=== PATIENT | male | born 1980 | race Hispanic/Latino ===

== ENCOUNTER 2016-06-11 15:05 | Day surgery (SDC) | payer SELFPAY ==
[~2016-06-11] VITALS: Ht 167.6 cm; Wt 94.4 kg
[2016-06-11] VITALS (7 sets, daily range): BP systolic 110–133; BP diastolic 60–88; PULSE 59–70; RESP 12–18; O2SAT 94–98
[2016-06-11] MEDS ORDERED: Dexamethasone 4 mg/mL Inj ONE (15:06)
[2016-06-11] MEDS ORDERED: fentaNYL-PF 50 mCg/mL 2 mL Inj ONE (15:06)
[2016-06-11] MEDS ORDERED: Propofol 10,000 mCg/mL 20 mL Inj ONE (15:06)
[2016-06-11] MEDS ORDERED: Ondansetron 2 mg/mL 2 mL Inj ONE (15:06)
[2016-06-11] MEDS ORDERED: CeFAZolin Inj 2 gm / 50mL D5W IV ONE (16:00)
[2016-06-11] MEDS ORDERED: Lactated Ringer's 1,000 ML IV ONE (16:00)
[2016-06-11] MEDS ORDERED: HYDR-4003 PO (16:40)
[2016-06-11] MEDS ORDERED: CEPH500C PO (16:40)
[2016-06-11] MEDS ORDERED: Mineral Oil-Light (Sterile) 25 mL TOPICAL ONE ×2 (17:06→18:11)
[2016-06-11] MEDS ORDERED: Lactated Ringer's 1,000 ML IV SCH (17:19)
[2016-06-11] MEDS ORDERED: Lactated Ringer's 500 ML IV PRN (17:19)
--- NOTE | 2016-06-11 17:19 | PCM.HPANE ---
Patient Data Date of Service: Jun 11, 2016 Surgeon Admitting Provider: Attending Provider:Markus Kamara DO Primary Care Physician:Sarah Other Provider:Devora Null Anesthesia Reason for Visit Ind Left Arm Ht/WT & BMI Height (Feet): 5 Height (Inches): 6 Weight (Kilograms): 94.4 Body Mass Index 33.00, 33.00 Allergies Coded Allergies: No Known Drug Allergies (Verified Allergy, Mild, 06/11/16) Past Anesthesia History Anesthesia History: Denies:: Abnormal Airway, Anesthesia Reactions, Difficult Intubation, Fam Anesthesia Reaction, Fam Malignant Hypertherm, Malignant Hyperthermia Diabetes History Hx Diabetes?: No MRSA MRSA: No Medications Hypertension Medication: No Home Meds Incl Beta Sumi: No Reported Medications Hydrocodone-Acetaminophen 5-325 mg 1 Each Tablet1 Tablet PO Q6HR PRN For Pain Ref 0 06/11/16 Cephalexin 500 Mg [id number] Mg PO QID #40 CAPSULE Ref 0 06/11/16 History History of ENT Problems?: No HEENT History: Denies:: Abnormal Airway Cataracts Difficult Intubation Dysphagia Glaucoma Hearing Problem Sinus Problem TMJ Denture Type: None Teeth Condition: Within Normal Limits Hx of Heart Problems?: No Cardiovascular History: Denies:: AICD Abdominal Aortic Aneurism Atrial Fibrillation Cardiac Surgery Chest Pain Congestive Heart Failure Coronary Artery Disease Edema Heart Murmur Hypertension Irregular Heartbeat Pacemaker Peripheral Vascular Rheumatic Fever Thrombophlebitis Valvular Heart Disease Hx of Respiratory Problem?: No Respiratory History: Denies:: Asthma COPD Chest Surgery Cough Dyspnea Emphysema Hemoptysis Oxygen Administration Pneumonia Pulmonary Embolism Tuberculosis Use of C-PAP Machine Use of Inhalers / NEBS Hx Neurologic Problems?: No Neurological History: Denies:: Alzheimer's Disease CVA Dementia Dizziness Headaches Multiple Sclerosis Parkinson's Disease Seizures TIA Hx of GI Problems?: No Hx of Problems?: No Genitourinary History: Denies:: HX of Hemodialysis Kidney Stones Urinary Tract Infection HX of Peritoneal Dialysis: No Male Hx: Denies:: Prostate Problems Scrotal Mass Testicular Surgery Hx Musculoskeletal Problems?: No Musculoskeletal History: Denies:: Back Injury Degenerative Joint Fibromyalgia Joint Replacement Musculoskeletal Trauma Myasthenia Gravis Osteoarthritis Rheumatoid Arthritis Systemic Lupus Hx of Psycho/Social Problems?: No Psycho Social History: Denies:: Bipolar Disorder Hx Depression Suicide Attempt Hx Surgeries?: No Hx Any Other Health Problems?: No Other History: Denies:: Cancer Endocrine Disease Hospitalization Thyroid Disease History Blood Transfusions: Denies:: Accept Blood Products? Blood Transfuse Reaction Blood Transfusions Hx Diabetes: No Hx Alcohol Use: Yes (SOCIALLY)Hx Substance Use: NoHave You Smoked inLast 12 mo : No Stop/Bang Treated for Sleep Apnea?: No Do You Have a CPAP Machine?: No S-Snoring: Do You Snore Loudly: No T-Tired: feel tired, fatigued: No O-Obsered: Observed not breath: No P-Blood Pressure: treated: No B- Body Mass Index > 35 kg/m2: No A- Age over 50: No N- Neck Large Circumference: No G- Gender Male: No UZAIR Total Score: 0 UZAIR Risk Assessment: Low Risk, <3 Yes Risk Assessment Category Category 1A: Patient has history of documented sleep apnea, and HAS NOT received any narcotic, sedative or anesthesia administration during this stay. Category 1B: Patient has history of documented sleep apnea, and HAS received any narcotic , sedative or anesthesia administration during this stay Category 2: Patient has SUSPECTED Obstructive Sleep Apnea, and HAS received any narcotic , sedative or anesthesia administration during this stay. Category 3: Patient has SUSPECTED Obstructive Sleep Apnea and HAS NOT received narcotic, sedative or anesthesia administration during this stay. Category 4: Outpatient in Procedural Areas with known sleep apnea or who screen positive for High Risk via the STOP/BANG questionnaire. Exam Exam Vital Signs Vital Signs Date Time Temp Pulse Resp B/P Pulse Ox O2 Delivery O2 Flow Rate FiO2 06/11/16 16:00 36.1 63 16 114/63 98 Room Air General Appearance: Alert, Oriented X3, Cooperative, No Acute Distress HEENT/AIRWAY: MP 2 Lungs: Clear to Auscultation Heart: Exam Unremarkable, Regular Rate/Rhythm, Normal S1, Normal S2, No Murmurs /Rubs/Gallops Meds/Labs/Diagnostics Admission Meds Current Medications Lactated Ringer's (Lr) 1,000 ml @ ud STK-MED ONCE IV Last administered on 06/11t 16:00; Start 06/11/16 at 16:00; Stop 06/11/16 at 16:20; Status DC Plan Impression Patient chart reviewed, patient interviewed and anesthestic plan with risks, benefits, and alternatives discussed, and informed consent obtained. ASA Physical Status: ASA1 Normal Healthy Anesthetic Plan: GA Bene/Risks/Altern/Consents: Yes HP Complete Prior to Induction: Yes Jose Santoyo MD Jun 11, 2016 17:19
[2016-06-11] MEDS ORDERED: Phenylephrine 10,000 mCg/mL Inj IVPUSH PRN (17:20)
[2016-06-11] MEDS ORDERED: Ondansetron 2 mg/mL 2 mL Inj IVPUSH PRN ×2 (17:20→17:45)
[2016-06-11] MEDS ORDERED: EPHEDrine Sulfate 50 mg/mL Inj IVPUSH PRN (17:20)
[2016-06-11] MEDS ORDERED: fentaNYL-PF 50 mCg/mL 2 mL Inj IVPUSH PRN (17:20)
[2016-06-11] MEDS ORDERED: Labetalol 5 mg/mL 4 mL Inj IV PRN (17:20)
[2016-06-11] MEDS ORDERED: Polyethylene Glycol (PEG) 17 Gm Powder PO PRN (17:45)
[2016-06-11] MEDS ORDERED: diphenhydrAMINE 25 mg Capsule PO PRN (17:45)
[2016-06-11] MEDS ORDERED: HYDROcodone-APAP 5-325 mg Tablet PO PRN (17:45)
[2016-06-11] MEDS ORDERED: Sodium Biphos-Phos 133 mL Enema RECTAL PRN (17:45)
[2016-06-11] MEDS ORDERED: Magnesium Hydroxide 10 mL Oral Concentration PO PRN (17:45)
--- NOTE | 2016-06-11 19:04 | PCM.ANEP1 ---
Post Anesthesia Phase 1 PACU Phase 1 Assessment Date of Service: Jun 11, 2016 Vital Signs Vital Signs Date Time Temp Pulse Resp B/P Pulse Ox O2 Delivery O2 Flow Rate FiO2 06/11/16 18:59 39.3 70 15 118/77 94 Room Air 06/11/16 16:00 36.1 63 16 114/63 98 Room Air Anesthetic Administered: GA Level of Alertness: Sleepy, easy to arouse ALCOCER's with Equal Strength: Yes Pain: No Nausea or Vomiting: No Cardiovascular Function and Hy: Yes Oxygen Delivery: Room Air Lungs: Clear to Auscultation Dermatome Level: Full Sensation Complications: No Follow up Care: No Jose Santoyo MD Jun 11, 2016 19:04
[2016-06-11] MEDS: Senna-Docusate 8.6-50 mg Tablet PO SCH (22:53)
[2016-06-12 00:31] VITALS: BP 117/75; PULSE 61; RESP 18; O2SAT 97
[2016-06-12] MEDS: Sodium Chloride LOK Flush 10 mL Syringe IV SCH ×2 (01:13→12:01)
[2016-06-12] MEDS ORDERED: 0.9% Sodium Chloride 250 ML ONE (02:33)
[2016-06-12] MEDS: CeFAZolin Inj 2 GM in IV Premix 1 EACH IV SCH ×2 (02:39→12:01)
--- NOTE | 2016-06-12 03:21 | NUR ---
Arrival to Unit Patient arrived to the floor at 1940 from PACU. Immediately after arrival, patient ambulated to bathroom SBA to void. Denies any lightheadedness or dizziness. Complained of 7/10 left thumb pain, but asked if he could eat before he received any pain medication. Has only required 1 tab percocet around 2250 for pain. Upon reassessment patient has been sleeping and appears comfortable. IV is running NS @ TKO with Int abx. Will continue to monitor, and continue Q1 hour checks.
[2016-06-12 05:22] VITALS: BP 118/70; PULSE 54; RESP 16; O2SAT 95
--- NOTE | 2016-06-12 08:43 | OP ---
[address] [address] OPERATIVE REPORT PATIENT: TWIN GUERRERO : 1980 MR#: [id number] ADMIT: 06/11/2016 JOB ID: [id number] DATE OF SURGERY: 06/11/2016 PREOPERATIVE DIAGNOSIS(ES): Left thumb high-pressure paint injection injury. POSTOPERATIVE DIAGNOSIS(ES): Left thumb high-pressure paint injection injury. PROCEDURE: Incision and drainage of complex left thumb paint injection injury. SURGEON: Markus Kamara D.O. ANESTHESIA: General. HISTORY: The patient is a pleasant 36-year-old male who was cleaning out his paint gun when he accidentally discharged it into his left thumb pulp. He presented the following day to an outlying facility and was diagnosed with high-pressure paint injection injury. He states that at the ED they squeezed out as much paint as possible and sutured the wound closed. He was thus referred to me the following day. Upon presentation, there was a mild amount of swelling and pain. Radiographs did demonstrate residual paint to the volar ulnar pulp. I discussed with the patient and his girlfriend the risks, benefits, alternatives and indications to proceed with incision and drainage of the left thumb. Explained to him the importance of having this done as soon as possible due to the paint causing further damage to the subcutaneous tissues. He understood the risks include, but not limited to, neurovascular injury, tendon injury, infection, skin necrosis, amputation, stiffness, all of which may require further intervention. The patient had all questions answered. Consent was signed and placed in the chart. PROCEDURE IN DETAIL: The patient was brought to the operative suite and placed supine on the operating room table. Surgical time-out was performed. Everyone in the room was in agreement. After appropriate anesthesia was obtained, a tourniquet was applied to the left upper extremity and the left upper extremity prepped and draped in a sterile fashion. The patient's previous puncture wound was opened up by removing the suture and extended in a Fide fashion both distally and proximally to the thumb. Dissection was carried down to the pulp demonstrating a significant amount of paint residue. The area was curetted. The neurovascular bundles were identified. There was some paint near and surrounding the ulnar neurovascular bundle. This was dissected free from the bundle. The underlying flexor tendon sheath was evaluated and did not demonstrate any evidence of a foreign body including any paint. Next, mineral oil was used to immerse the operative site and to help remove some of the paint particles. This was followed by washing with normal saline. This was repeated several times followed by application of chlorhexidine and scrubbing the operative site. This was again repeated with a wash of normal saline and several repeats of the chlorhexidine scrub. This was followed by a fine dissection through the dermis and the subcutaneous tissues to remove any remaining pain particles. This was performed utilizing a combination of curettes, rongeurs and sharp dissection with curved scissors. Final radiographic projections on fluoroscopy were utilized to verify removal of the paint from the soft tissues. Final irrigation was performed and final examination performed. The patient's skin was then closed with 5-0 nylon in a simple interrupted fashion after placing one single Iodoform gauze as a wick within the wound for later removal on postoperative day #1. Bulky dressing was then applied. ESTIMATED BLOOD LOSS: Less than 1 cc. COMPLICATIONS: None. DISPOSITION: The patient tolerated the procedure well. Anesthesia was reversed. The patient was transferred back to recovery. POSTOPERATIVE PLAN: The patient will be admitted overnight and his thumb will be re-evaluated tomorrow. He will likely be able to be discharged home once the drain is pulled and have him start working on range of motion to the left thumb. I did discuss the possibility of requiring a second washout if his symptoms were not improving within his hospitalization. He will then followup in a week once discharged for a wound recheck and at two weeks for suture removal. JAYNA
[2016-06-12] MEDS: Senna-Docusate 8.6-50 mg Tablet PO SCH (09:30)
[2016-06-12 09:39] VITALS: BP 122/77; PULSE 66; RESP 18; O2SAT 97
--- NOTE | 2016-06-12 09:50 | NUR ---
Pt. not available at first visit (RN evaluating). I will try again when schedule allows which won't be until at least early afternoon. I did overhear RN discussing edema control and encouraging ROM so pt. has been educated properly. Channing Daniels, OTR/L
--- NOTE | 2016-06-12 13:00 | PCM.PNORTH ---
Subjective Date of Service: Jun 12, 2016 Visit Information: Reason for Visit Ind Left Arm Surgery/Surgery Date Post-Op Day # Date of Admission: Hospital Day # Subjective POD #1 s/p I/D L thumb secondary to a high pressure paint injection injury Pt doing well. Mild pain. Taking mainly ibuprofen. Tolerating PO Objective Exam Objective Gen - alert, NAD Ext - dressing C/D/I Drain pulled Thumb well perfused with complete intact sensation Vital Signs and I/O Vital Sign - Last Date Time Temp Pulse Resp B/P Pulse Ox O2 Delivery O2 Flow Rate FiO2 06/12/16 09:39 36.7 66 18 122/77 97 Room Air Intake and Output 06/11/16 06/11/16 06/12/16 Cumulative From/Thru 15:00 23:00 07:00 06/11/16 16:00 - 06/12/16 06:13 Intake Total 100 ml 495 ml 595 ml Balance 100 ml 495 ml 595 ml Intake Oral 400 ml 400 ml IV Total 100 ml 95 ml 195 ml # Voids 2 2 # Bowel Movements 0 0 Assessment & Plan Impression POD #1 s/p I/D L thumb secondary to high pressure paint injection injury Problems: Plan 1) Ok to d/c home 2) FU in 1 week 3) Keep hand elevated to help with swelling 4) Ice to the thumb and hand for 30 minutes every 3 hours while awake for next 3 days 5) Cover the hand and dressing with several plastic bags and tape when showering 6) Encourage ROM of the left thumb Markus Kamara DO Jun 12, 2016 13:00
--- NOTE | 2016-06-12 13:02 | PCM.DIOPOR ---
OP Ortho Discharge Instruction Dates of Hospitalization Date of Discharge: Jun 12, 2016 Providers Admitting Physician: Primary Care Physician: Sarah Attending Physician: Markus Kamara DO Diagnosis at Time of Discharge Post operative diagnosis POD #1 s/p I/D left thumb secondary to high pressure paint injection injury Diet Discharge Diet: No restrictions Additional Instructions Discharge Instructions 1) FU in 1 week 2) Keep hand elevated to help with swelling 3) Ice to the thumb and hand for 30 minutes every 3 hours while awake for next 3 days 4) Cover the hand and dressing with several plastic bags and tape when showering 5) Encourage ROM of the left thumb Follow Up Plan Follow-up Provider (F9): Markus Kamara DO Follow-up appointment: Weeks (1 week) Markus Kamara DO Jun 12, 2016 13:02
--- NOTE | 2016-06-12 13:05 | PCM.DC.ORT ---
Discharge Summary Date of Service: Jun 12, 2016 Date of Hospital Admission: June 11, 2016 Date of Surgery: Jun 11, 2016 Date of Discharge: Jun 12, 2016 Reason for Hospitalization: Left thumb high pressure paint injection injury Procedures Performed: I/D left thumb Hospital Course: Uneventful. Tolerated surgery well. Drain pulled POD#1. Pain controlled with oral meds. Thumb NVI Diagnosis at Time of Discharge POD#1 s/p I/D left thumb Problems: Disposition: To home Orthopedic Follow up Plan: Next Week in my clinic Discharge Instructions: 1) FU in 1 week 2) Keep hand elevated to help with swelling 3) Ice to the thumb and hand for 30 minutes every 3 hours while awake for next 3 days 4) Cover the hand and dressing with several plastic bags and tape when showering 5) Encourage ROM of the left thumb Discharge Medications Keflex (pt has from ED) Center Cephalexin (Cephalexin) 500 Mg Capsule 500 MG PO QID Hydrocodone-Acetaminophen 5-325 mg (Hydrocodone-Acetaminophen 5-325 mg) 1 Each Tablet 1 TABLET PO Q6HR PRN PRN For Pain Markus Kamara DO Jun 12, 2016 13:05
[2016-06-12 15:53] VITALS: BP 111/68; PULSE 62; RESP 18; O2SAT 98
--- NOTE | 2016-06-12 16:23 | NUR ---
Discharge Pt d/c'd home at approx 1624. Reviewed d/c instructions w/ patient, construction flagger present. IV d/c'd intact. All questions answered. Pt denied offer for w/c to his 's POV and ambulated w/ a strong steady gait and left w/ all belongings and hard copy of RX
== END 2016-06-12 16:24 | disposition home or self-care (01) ==
LOC: SAS 15:05 → OSC 19:52 → SAS 06-12 16:24
PROVIDERS: ATTEND Orthopaedic Surgery
DX: S69.82XA Other specified injuries of left wrist, hand and finger(s), initial encounter (principal); T70.4XXA Effects of high-pressure fluids, initial encounter; W34.011A Accidental discharge of paintball gun, initial encounter; Y93.9 Activity, unspecified; Y92.9 Unspecified place or not applicable
CPT/HCPCS: 20525; 76000; 94640; J0690; J1100; J2405; J3010; J7050; J7120